=== PATIENT | male | born 1985 | race Hispanic/Latino ===

== ENCOUNTER 2017-01-13 17:23 | Emergency (ER) | payer MEDICAID ==
[2017-01-13] MEDS ORDERED: NORCO 10/325 PO ONE (19:24)
[2017-01-13] MEDS ORDERED: KEFLEX PO ONE (19:24)
--- NOTE | 2017-01-13 19:28 | Emergency Department Report ---
ED Animal Bite HPI - General Chief Complaint: Animal Bite Stated Complaint: DOG BITE Time Seen by Provider: 01/13/17 19:07 Source: patient Mode of arrival: Ambulatory Limitations: No Limitations - History of Present Illness MD Complaint: animal bite -: Sudden Left: Hand, Right: Foot Animal Control Notified: Yes Description: household pet, immunizations UTD, appeared well Mechanism: bite Pain Description: sharp, dull Severity scale (0 -10): 5 Context: provoked Associated Symptoms: bleeding. denies: erythema, discharge from wound, fever, chills, rash, loss of consciousness, cough, headache, diaphoresis, shortness of breath Treatments Prior to Arrival: wound dressing(s), irrigation - Related Data Patient Tetanus UTD: No Previous Rx's Medication Instructions Recorded Last Taken Type Cephalexin [Keflex] 500 mg PO BID #20 capsule 01/13/17 Unknown Rx HYDROcodone/APAP 10-325 [[place] 1 each PO BID #12 tablet 01/13/17 Unknown Rx 10-325 mg TAB] ED Review of Systems ROS: Stated complaint: DOG BITE Other details as noted in HPI Comment: All other systems reviewed and negative ED Past Medical Hx - Past Medical History Previous Medical History?: No - Surgical History Past Surgical History?: Yes Additional Surgical History: eye - Social History Smoking Status: Never Smoker Substance Use Type: Alcohol - Medications Home Medications: Home Medications Medication Instructions Recorded Confirmed Last Taken Type Cephalexin [Keflex] 500 mg PO BID #20 capsule 01/13/17 Unknown Rx HYDROcodone/APAP 10-325 [[place] 1 each PO BID #12 tablet 01/13/17 Unknown Rx 10-325 mg TAB] ED Physical Exam - General Limitations: No Limitations General appearance: alert, in no apparent distress - Head Head exam: Present: atraumatic, normocephalic - Eye Eye exam: Present: normal appearance - ENT ENT exam: Present: mucous membranes moist - Neck Neck exam: Present: normal inspection - Respiratory Respiratory exam: Present: normal lung sounds bilaterally. Absent: respiratory distress - Cardiovascular Cardiovascular Exam: Present: regular rate, normal rhythm. Absent: systolic murmur, diastolic murmur, rubs, gallop - GI/Abdominal GI/Abdominal exam: Present: soft, normal bowel sounds - Rectal Rectal exam: Present: deferred - Extremities Exam Extremities exam: Present: normal inspection, full ROM, other (2 cm laceration in palmar surface in the left 3rd finger/ no active bleeding.) - Back Exam Back exam: Present: normal inspection - Neurological Exam Neurological exam: Present: alert, oriented X3 - Psychiatric Psychiatric exam: Present: normal affect, normal mood - Skin Skin exam: Present: warm, dry, intact, normal color. 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 will cover with TD and abx and daily dressing changes Critical care attestation.: If time is entered above; I have spent that time in minutes in the direct care of this critically ill patient, excluding procedure time. ED Disposition Clinical Impression: Laceration, Dog bite Disposition: DC- TO HOME OR SELFCARE Is pt being admited?: No Does the pt Need Aspirin: No Condition: Good Prescriptions: Cephalexin [Keflex] 500 mg PO BID #20 capsule HYDROcodone/APAP 10-325 [[place] 10-325 mg TAB] 1 each PO BID #12 tablet Time of Disposition: 19:32
[2017-01-13] MEDS ORDERED: BOOSTRIX IM ONE (20:08)
[2017-01-13] MEDS ORDERED: TRIPLE ANTIBIOTIC TP ONE (20:09)
[2017-01-13 21:35] VITALS: BP 132/84
== END 2017-01-13 20:50 | disposition home or self-care (01) ==
LOC: ED 17:23
DX: S61.213A Laceration without foreign body of left middle finger without damage to nail, initial encounter (principal); W54.0XXA Bitten by dog, initial encounter; Y93.89 Activity, other specified; Y92.89 Other specified places as the place of occurrence of the external cause; Y99.8 Other external cause status
CPT/HCPCS: 90471; 90715; 99282; A6250